=== PATIENT | male | born 1930 | race Caucasian/White ===

== ENCOUNTER → 2021-03-31 | Day surgery (SDC) | payer MEDICARE, BC ==
[2021-03-29 14:17] VITALS: BMI 29.9
[~2021-03-31] MED LIST: ACETAMINOPHEN TAB 325 MG TAB PO PRN; LIDOCAINE 1% INJ 10MG/ML (20 ML MDV) ONE; LIDOCAINE 1% INJ 10MG/ML (20 ML MDV) SQ ONE; SODIUM CHLORIDE 0.9% 1,000 ML IV SCH; ceFAZolin 1 GM in SODIUM CHLORIDE 0.9% 250 ML IRRIGATION PRN; fentaNYL (PF) 50 MCG/ML 2 ML AMP IVP ONE; fentaNYL (PF) 50 MCG/ML 2 ML AMP ONE
[2021-03-31 10:01] VITALS: RESP 18; TEMP 97.7
--- NOTE | 2021-03-31 11:44 | P.PCN ---
Date of Procedure: 03/31/21 Preoperative Diagnosis: Battery depletion Postoperative Diagnosis: The same Procedure(s) Performed: Generator replacement Description of Procedure: HISTORY: This is a 89-year-old gentleman with history of permanent pacemaker implantation. Recent interrogation showed that patient reached DOTTIE. He is advised to have generator replacement and was brought in for the elective procedure CONSENT: I have discussed the risks and benefits as related to the above mentioned procedure and both sedation/analgesia as well as necessary blood product administration. The patient has indicated understanding and acceptance of the risks of the procedure discussed. PROCEDURE: Patient was brought to the lab in a fasting state. Patient was given IV Versed and fentanyl for sedation. The skin over the existing pulse generator was infiltrated with lidocaine. An incision was made in the skin and was deepened until the pectoral fascia was exposed. Hemostasis was obtained. The existing pulse generator was pulled out of the pocket. The leads were disconnected and were checked for thresholds. Conscious Sedation: Versed 0mg Fentanyl 12.5 g Duration 27minutes THRESHOLDS: ATRIAL LEAD: Patient is in A. fib. He at the impedance is 543. The flutter waves are 0.8 VENTRICULAR: The minimum patient threshold is 1.25 V at pulse width of 1. The impedance is 420 R-wave: 15 THE LEADS: ATRIAL: . This is manufactured by [employer] model number is 5076-45 and the serial number is [id number] VENTRICULAR: This is manufactured by [employer] model number is 5092-58 and the serial number is [id number] THE EXPLANTED DEVICE: this is manufactured by [employer]. Model number is SEDR 01 and the serial number [id number] THE NEW DEVICE: This is manufactured by [employer]. The model number [id number] and the serial number [id number]. The leads were then connected to a new pulse generator. Pacemaker seems to function normally. The pocket was irrigated with antibiotics. The pocket was closed in the usual fashion. Pectoral fascia was closed with 2-0 Prolene, the subcutaneous tissue was closed with 3-0 Prolene and the skin was closed with 4-0 Prolene. Patient tolerated the procedure well . Patient will be monitored on the telemetry unit for 2-3 hours. If stable patient be discharged home later today. PLAN: Patient will be monitored for the next few hours. If stable patient will be discharged home later today. Patient will continue current medical therapy and resume his Coumadin. He is advised to have INR in about 4 days. FALLOW UP: In one week.
[2021-03-31 13:39] VITALS: PULSE 58
[2021-03-31 14:14] VITALS: BP 156/69
== END | disposition home or self-care (01) ==
LOC: CATHEP 09:26
PROVIDERS: ATTEND Internal Medicine Cardiovascular Disease
DX: Z45.010 Encounter for checking and testing of cardiac pacemaker pulse generator [battery] (principal); I48.21 Permanent atrial fibrillation; I42.8 Other cardiomyopathies; I73.9 Peripheral vascular disease, unspecified; I10 Essential (primary) hypertension; R06.00 Dyspnea, unspecified; Z20.822 Contact with and (suspected) exposure to COVID-19; Z82.49 Family history of ischemic heart disease and other diseases of the circulatory system; Z72.0 Tobacco use; I48.19 Other persistent atrial fibrillation; Z79.1 Long term (current) use of non-steroidal anti-inflammatories (NSAID); Z79.899 Other long term (current) drug therapy; Z79.01 Long term (current) use of anticoagulants
CPT/HCPCS: 33228; 87635; C1785; J0690; J2001; J3010